=== PATIENT | male | born 2000 | race Caucasian/White ===

== ENCOUNTER 2022-01-31 19:38 | Emergency (ER) | payer OTHER ==
[~2022-01-31] VITALS: Ht 175.3 cm; Wt 72.6 kg
[2022-01-31 19:51] VITALS: BP 128/78
[2022-01-31 19:55] VITALS: BP 128/78
--- NOTE | 2022-01-31 20:01 | NUR ---
PT AMBUALTED TO BED #5
[2022-01-31] MEDS ORDERED: NACL 0.9% 1,000 ML IV SCH (20:15)
--- NOTE | 2022-01-31 20:20 | NUR ---
PT AMBULATED TO THE RR AND BACK TO BED 5
--- NOTE | 2022-01-31 20:28 | NUR ---
RAD AT BEDSIDE
--- NOTE | 2022-01-31 20:32 | NUR ---
MD ZAMORA AT BEDSIDE ASSESSING PT
[2022-01-31] MEDS ORDERED: KETOROLAC 60 MG/2 ML VIAL IM ONE (20:35)
[2022-01-31] MEDS ORDERED: ONDANSETRON 4 MG TAB PO ONE (20:35)
--- NOTE | 2022-01-31 21:00 | NUR ---
MD ZAMORA AT BEDSIDE ASSESSING PATIENT
--- NOTE | 2022-01-31 21:30 | NUR ---
marisol tvss, resting in bed. no c/o n/v/d at this time. all needs met
[2022-01-31] MEDS ORDERED: ONDA8TAB87 PO (22:05)
[2022-01-31] MEDS ORDERED: IBUP-2213 PO (22:05)
[2022-01-31] MEDS ORDERED: LOPE-289 PO (22:05)
--- NOTE | 2022-01-31 22:15 | NUR ---
Patient discharged with v/s stable. Written and verbal after care instructions given on N/V/D and explained. Patient alert, oriented and verbalized understanding of instructions. Ambulatory with steady gait. All questions addressed prior to discharge. ID band removed. Patient advised to follow up with PMD. Rx of Ibuprofen, Imodium, and zofran given.
--- NOTE | 2022-01-31 22:25 | NUR ---
The patient's care was reviewed and supervised by Светлана Valle RN. Chart checked.
== END 2022-01-31 22:15 | disposition home or self-care (01) ==
LOC: MED 19:38
DX: R11.2 Nausea with vomiting, unspecified (principal); R10.12 Left upper quadrant pain; R50.9 Fever, unspecified; R19.7 Diarrhea, unspecified; Z98.890 Other specified postprocedural states
CPT/HCPCS: 71045; 81002; 96372; 99283; J1885; Q0092; Q0162